=== PATIENT | male | born 2000 | race Two or more races ===

== ENCOUNTER 2019-10-11 00:37 | Emergency (ER) | payer MEDICAID ==
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
[2019-10-11] MEDS ORDERED: Potassium Chloride 20 MEQ Tab.ER PO ONE (02:02)
== END 2019-10-11 07:11 | disposition home or self-care (01) ==
LOC: JD.ED 00:37
DX: L89.224 Pressure ulcer of left hip, stage 4 (principal); L89.214 Pressure ulcer of right hip, stage 4; E87.6 Hypokalemia; F12.10 Cannabis abuse, uncomplicated; F17.210 Nicotine dependence, cigarettes, uncomplicated
CPT/HCPCS: 36415; 80053; 80306; 80307; 83735; 85007; 85027; 87804; 99283; A9270